=== PATIENT | female | born 1945 | race Two or more races ===

== ENCOUNTER 2022-11-10 07:24 | Inpatient (IN) | payer MEDICARE, MEDICAID, SELFPAY ==
[2022-11-10] VITALS (39 sets, daily range): BP systolic 92–154; BP diastolic 59–84; PULSE 85–116; RESP 14–26; TEMP 36.4–37.8; O2SAT 84–97; BMI 28.3; BMI 24.1
--- NOTE | 2022-11-10 07:34 | ECG_ITS ---
The [facility] Test Date: 2022-11-10 Pat Name: ENRIQUETA UGALDE Department: Room: - Gender: Female [employer]: : 1945 Requested By: Order Number: [id number] Reading MD: RONA RICHARDSON Measurements Intervals [place] Rate: 109 P: 50 WV: 158 QRS: 40 QRSD: 84 T: 99 QT: 322 QTc: 386 Interpretive Statements 1120 Sinus tachycardia 1570 with occasional ventricular premature complexes 4068 Nonspecific [place] abnormality 8102 Low QRS voltage in chest leads 9140 abnormal rhythm ECG No previous ECG available for comparison Electronically Signed On 11-11-2022 5:35:31 EDT by RONA RICHARDSON
--- NOTE | 2022-11-10 07:35 | XR_ITS ---
The [address] [address] Patient Name: ENRIQUETA UGALDE MRN: [id number] date: 1945 Sex: F Assigned Patient Location: ED.MAIN Current Patient Location: ED.MAIN Accession/Order Number: [id number] Exam Date: 11/10/2022 08:19 Report Date: 11/10/2022 08:46 At the request of: VERNON COLORADO Procedure: XR chest 1V EXAMINATION: XR chest 1V HISTORY: altered MS COMPARISON: 03/06/2019 TECHNIQUE: AP portable FINDINGS: LUNGS: Low lung volumes. No focal parenchymal infiltrates. Calcified tracheal bronchial tree VASCULATURE: Moderately increased pulmonary vasculature PLEURA: No pneumothorax, effusion, or pleural thickening. CARDIAC: No cardiomegaly or cardiac silhouette abnormality. MEDIASTINUM: No visible mass or adenopathy. BONES: No fracture or visible bone lesion. OTHER: Negative. XR/XR chest 1V IMPRESSION: Pulmonary vascular congestion Electronically authenticated by: WINNIE GUAN Date: 11/10/2022 08:46
--- NOTE | 2022-11-10 07:35 | CT_ITS ---
[address] [address] Patient Name: ENRIQUETA UGALDE MRN: [id number] date: 1945 Sex: F Assigned Patient Location: ER Current Patient Location: ER Accession/Order Number: [id number] Exam Date: 11/10/2022 08:12 Report Date: 11/10/2022 08:48 At the request of: VERNON COLORADO Procedure: CT head/brain wo con EXAMINATION: CT head/brain wo con, 11/10/2022 8:12 AM EDT HISTORY: altered MS COMPARISON: 03/06/2019 TECHNIQUE: CT scan of the head was performed without IV contrast. CT dose reduction technique was used, including Automated Exposure Control. FINDINGS: BRAIN PARENCHYMA/CSF SPACES: Chronic appearing right MCA territory infarct with ex vacuo dilatation of the right lateral ventricle. There is no hemorrhage, mass effect or midline shift. Mild low attenuation in the white matter consistent with chronic microvascular ischemia. PARANASAL SINUSES: There is complete opacification of the right maxillary and frontal sinuses. Moderate right ethmoid sinus disease. Mild left ethmoid sinus disease. The mastoid air cells are pneumatized. SKULL BASE AND CALVARIUM: Normal. EXTRACRANIAL SOFT TISSUES: Normal. CT/CT head/brain wo con IMPRESSION: 1. No acute intracranial abnormality. 2. Chronic appearing right MCA territory infarct. 3. Extensive sinus disease as described. Electronically authenticated by: ISABELLA PHILLIPS Date: 11/10/2022 08:48
--- NOTE | 2022-11-10 07:38 | ED_ITS ---
HPI - Altered Mental Status General Chief Complaint: Altered Mental Status Stated Complaint: SHORTNESS OF BREATH Time Seen by Provider: 11/10/22 07:30 Source: caregiver Source comment: JALEN SAINZ [facility]/ [facility] Mode of arrival: ambulance Limitations: altered mental status History of Present Illness HPI narrative: 77-year-old female presents from [facility] for altered mental status. She has a histo ry of cerebral palsy and is unable to give us any history at all. The patient normally is verbally combative and wasn't today. They felt that her O2 sat was low at eighty-eight percent so they sent her in. She came in by squad and is unable to provide us any history. All the history is obtained from the report and the paramedics and her paperwork. Related Data Home Medications Medication Instructions Recorded Confirmed Ear Drops 11/10/22 acetaminophen 500 mg tablet 500 mg PO Q6H PRN fever or pain 11/10/22 11/10/22 (Acetaminophen Extra Strength) benzonatate 200 mg capsule See Rx Instructions PO .COMPLEX 11/10/22 11/10/22 PRN cough brimonidine 0.2 %-timolol 0.5 % 1 drp ophthalmic (eye) BID 11/10/22 11/10/22 eye drops (Combigan) carbamazepine 200 mg 200 mg PO Q12H 11/10/22 11/10/22 tablet,extended release,12 hr carbamazepine 400 mg 400 mg PO Q12H 11/10/22 11/10/22 tablet,extended release,12 hr celecoxib 100 mg capsule 100 mg PO Q24H 11/10/22 11/10/22 cholecalciferol (vitamin D3) 125 125 mcg PO .24h 11/10/22 11/10/22 mcg (5,000 unit) tablet ibandronate 150 mg tablet 150 mg PO .monthly 11/10/22 11/10/22 [id number] .ROUTE 11/10/22 levetiracetam 1,000 mg tablet 1,000 mg PO Q12H 11/10/22 11/10/22 levetiracetam 500 mg tablet 500 mg PO Q12H 11/10/22 11/10/22 levothyroxine 50 mcg tablet 50 mcg PO DAILY 11/10/22 11/10/22 meclizine 12.5 mg tablet 12.5 mg PO TID PRN dizziness 11/10/22 11/10/22 pantoprazole 20 mg tablet,delayed 20 mg PO .24h 11/10/22 11/10/22 release phenyleph-shark oil-cocoa butr ME 11/10/22 potassium chloride 10 mEq 10 meq PO DAILY 11/10/22 11/10/22 tablet,extended release prednisolone acetate 1 % eye 1 drp ophthalmic (eye) Q12H 11/10/22 11/10/22 drops,suspension risperidone 0.25 mg tablet 0.25 mg PO QAM 11/10/22 11/10/22 risperidone 1 mg tablet 1 mg PO .qhs 11/10/22 11/10/22 rosuvastatin 40 mg tablet 40 mg PO DAILY 11/10/22 11/10/22 sennosides 8.6 mg tablet (senna) 8.6 mg PO DAILY 11/10/22 11/10/22 sertraline 100 mg tablet 100 mg PO Q24H 11/10/22 11/10/22 sertraline 50 mg tablet 50 mg PO Q24H 11/10/22 11/10/22 topiramate 100 mg tablet 100 mg PO Q12H 11/10/22 11/10/22 topiramate 200 mg tablet 200 mg PO Q12H 11/10/22 11/10/22 venlafaxine 75 mg capsule,extended 75 mg PO DAILY 11/10/22 11/10/22 release 24 hr Allergies Allergy/AdvReac Type Severity Reaction Status Date / Time No Known Drug Allergies Allergy Verified 11/10/22 08:09 Review of Systems ROS Narrative A ten point review of systems is negative except as noted above. Exam Narrative Exam Narrative: Nurses note and vital signs reviewed and patient is not hypoxic. General: The patient is nonverbal and is in no respiratory distress. Skin: Warm, dry, pallor noted. There is no rash noted. Head: Normocephalic, atraumatic Eye: Normal conjunctiva, no drainage Ears, Nose, Mouth, and Throat: oral mucosa is slightly dry. She is mouth breathing. Cardiovascular: Regular Rate and Rhythm Respiratory: Patient is in no distress, no accessory muscle use, lungs are clear to auscultation, no wheezing, rales or rhonchi Back: non-tender GI: soft and nontender Musculoskeletal: there is a contracture of her left hand and wrist Neurological: nonverbal Psychiatric: cannot be assessed Constitutional Vital Signs, click to edit/add: Last Vital Signs Temp 97.5 F L 11/10/22 07:29 Pulse 106 H 11/10/22 10:00 Resp 26 H 11/10/22 10:00 BP 103/80 11/10/22 10:13 Pulse Ox 94 L 11/10/22 10:28 O2 Del Method Room Air 11/10/22 10:28 O2 Flow Rate 2 11/10/22 07:30 Course Vital Signs Vital signs: Vital Signs Temperature 97.5 F L 11/10/22 07:29 Pulse Rate 116 H 11/10/22 07:29 Respiratory Rate 19 11/10/22 07:29 Blood Pressure 154/84 H 11/10/22 07:29 Pulse Oximetry 93 L 11/10/22 07:29 Oxygen Delivery Method Room Air 11/10/22 07:29 Temperature 97.5 F L 11/10/22 07:29 Pulse Rate 106 H 11/10/22 10:00 Respiratory Rate 26 H 11/10/22 10:00 Blood Pressure 103/80 11/10/22 10:13 Pulse Oximetry 94 L 11/10/22 10:28 Oxygen Delivery Method Room Air 11/10/22 10:28 Oxygen Delivery Flow Rate 2 11/10/22 07:30 MDM - Altered Mental Status MDM Narrative Medical decision making narrative: The patient's extensive workup suggests the possibility of a right lower lobe infiltrate. The patient is hemodynamically stable but according to caregiver hasn't returned to her normal self. Blood cultures are obtained and then she was given IV antibiotics and she's being admitted. Findings are discussed with the caregiver. Differential Diagnosis Differential diagnosis: Likely altered mental status, hypoglycemia, hyponatremia and OTHER (pneumonia, urinary tract infection, medication side effect) Lab Data Attestation: I reviewed the patient's lab results. Labs: Lab Results 11/10/22 11/10/22 Range/Units 07:40 07:50 WBC 9.2 (4.0-11.0) 10^3/uL RBC 3.97 L (4.20-5.40) 10^6/uL Hgb 13.6 (12.0-16.0) g/dL Hct 41.8 (36.0-48.0) % MCV 105.3 H (81.0-99.0) fL MCH 34.3 H (26.7-34.0) pg MCHC 32.5 (29.9-35.2) g/dL RDW 12.1 (11.0-15.0) % Plt Count 187 (150-450) 10^3/uL MPV 9.7 (9.5-13.5) fL Seg Neuts % (Manual) 91.0 Lymphocytes % (Manual) 6.0 L (20.5-60.0) % Monocytes % (Manual) 3.0 (1.7-12.0) % Eosinophils % (Manual) 0.0 L (0.9-7.0) % Basophils % (Manual) 0.0 L (0.2-2.0) % Neutrophils # (Manual) 8.37 H (1.4-6.5) 10^3/uL Lymphocytes # (Manual) 0.55 L (1.20-3.80) 10^3/uL Monocytes # (Manual) 0.27 L (0.30-0.80) 10^3/uL Eosinophils # (Manual) 0.00 (0.00-0.70) 10^3/uL Basophils # (Manual) 0.00 (0.00-0.10) 10^3/uL Macrocytosis 1+ Sodium 141 (136-145) mmol/L Potassium 3.4 L (3.5-5.1) mmol/L Chloride 108 H (98-107) mmol/L Carbon Dioxide 22.9 (21.0-32.0) mmol/L Anion Gap 13.5 BUN 16.0 (7.0-18.0) mg/dL Creatinine 0.79 (0.55-1.02) mg/dL Est GFR ( Amer) >60 (>=60) Est GFR (Non-Af Amer) >60 (>=60) BUN/Creatinine Ratio 20.3 Glucose 148 H (74-106) mg/dL Calcium 8.6 (8.5-10.1) mg/dL Troponin I High Sens 5.2 (4.0-51.3) pg/mL NT-Pro-B Natriuret Pep 425.0 (<=1800.0) pg/mL Urine Color Yellow (YELLOW) Urine Clarity Clear (CLEAR) Urine pH 7.0 (5.0-9.0) Ur Specific [place] 1.010 (1.005-1.025) Urine Protein Negative (NEG/TRACE) mg/dL Urine Glucose (UA) Negative (NEGATIVE) mg/dL Urine Ketones Negative (NEGATIVE) mg/dL Urine Occult Blood Negative (NEGATIVE) Urine Nitrite Positive A (NEGATIVE) Urine Bilirubin Negative (NEGATIVE) Urine Urobilinogen 1.0 (0.2-1.0) EU/dL Ur Leukocyte Esterase Negative (NEGATIVE) Urine RBC None seen (0-2) #/HPF Urine WBC 0-2 A (NONE SEEN) #/HPF Ur Squamous Epith Cells Few A (NONE/RARE) #/LPF Ur Renal Epithelial Cell Few A (NONE SEEN) #/LPF Urine Bacteria Large A (NONE SEEN) #/HPF Urine Mucus None seen (NONE SEEN) Imaging Data chest x-ray, CAT scan of abdomen: Radiologist's impression: Procedure: XR chest 1V EXAMINATION: XR chest 1V HISTORY: altered MS COMPARISON: 03/06/2019 TECHNIQUE: AP portable FINDINGS: LUNGS: Low lung volumes. No focal parenchymal infiltrates. Calcified tracheal bronchial tree VASCULATURE: Moderately increased pulmonary vasculature PLEURA: No pneumothorax, effusion, or pleural thickening. CARDIAC: No cardiomegaly or cardiac silhouette abnormality. MEDIASTINUM: No visible mass or adenopathy. BONES: No fracture or visible bone lesion. OTHER: Negative. IMPRESSION: Pulmonary vascular congestion Electronically authenticated by: WINNIE GUAN Date: 11/10/2022 08:46 Procedure: CT abdomen pelvis w con EXAM: CT abdomen pelvis w con; [id number] REASON FOR EXAM: altered MS TECHNIQUE: Helical CT images of the abdomen and pelvis were obtained after the administration of IV contrast. Multiplanar reformats were generated at the scanner. Dose reduction technique used: Automated exposure control and/or adjustment of the mA and/or kV according to patient size and/or use of iterative reconstruction technique. COMPARISON: CT abdomen/pelvis 12/12/2016. FINDINGS: Visualized Chest: Mild right basilar consolidation. Abdomen: Liver: -Multiple well-circumscribed subcentimeter hypodensities in the liver are too small to further characterize with any imaging modality though likely represent benign lesions. Gallbladder: Layering calcified gallstones are present. No evidence of acute cholecystitis. Bile Ducts: No significant biliary ductal dilatation. Pancreas: No mass, ductal dilatation, or inflammatory changes. Spleen: No splenomegaly or focal lesion. Adrenals: No nodules. Kidneys: -No stones or hydronephrosis. -No mass. Vascular: No aortic aneurysm. Lymph Nodes: No adenopathy. Abdominal Wall: Small fat-containing left inguinal hernia and small fat-containing periumbilical hernia. Pelvis: No mass or adenopathy. Bowel/Peritoneal Cavity/Mesentery: -No bowel obstruction or significant ileus. -No acute inflammatory changes. -No free air or free fluid. Musculoskeletal: Moderate wedge compression fracture of L3, new compared with 2017. IMPRESSION: 1. Mild right basilar consolidation. The appearance is equivocal for atelectasis versus pneumonia or aspiration. 2. Age-indeterminate moderate wedge compression fracture of L3. 3. Cholelithiasis without evidence of acute cholecystitis. 4. No acute intra-abdominal abnormality demonstrated. Electronically authenticated by: VICK BROWN Date: 11/10/2022 10:51 ECG Data Attestation: I personally reviewed and interpreted this ECG as follows: ( EKG on my interpretation shows sinus rhythm with a rate of 109.) Discharge Plan Discharge Chief Complaint: Altered Mental Status Clinical Impression: Pneumonia Patient Disposition: Admitted As Inpatient Time of Disposition Decision: 11:25 Condition: Fair
[2022-11-10 08:30] LABS: Anion Gap 13.5; BUN Creatinine Ratio 20.3; Calcium 8.6 mg/dL (8.5-10.1); Carbon Dioxide 22.9 mmol/L (21.0-32.0); Chloride 108 mmol/L (98-107); Estimated GFR (African America >60 (>=60); Estimated GFR (Non-African Ame >60 (>=60); Glucose 148 mg/dL (74-106); Potassium 3.4 mmol/L (3.5-5.1); Sodium 141 mmol/L (136-145)
[2022-11-10 08:30] LABS: Bilirubin Urine NEGATIVE (NEGATIVE); Blood Urine NEGATIVE (NEGATIVE); Clarity Urine CLEAR (CLEAR); Color Urine YELLOW (YELLOW); Glucose Urine UA NEGATIVE (NEGATIVE); Ketones Urine NEGATIVE (NEGATIVE); Leukocyte Esterase Urine NEGATIVE (NEGATIVE); Nitrite Urine POSITIVE (NEGATIVE); Protein Urine NEGATIVE (NEG/TRACE)
[2022-11-10 08:48] LABS: Hematocrit 41.8 % (36.0-48.0); Hemoglobin 13.6 g/dL (12.0-16.0); Mean Corpuscular HGB Conc 32.5 g/dL (29.9-35.2); Mean Corpuscular Hemoglobin 34.3 pg (26.7-34.0); Mean Corpuscular Volume 105.3 fL (81.0-99.0); Mean Platelet Volume 9.7 fL (9.5-13.5); Platelet Count 187 10^3/uL (150-450); Red Blood Count 3.97 10^6/uL (4.20-5.40); Red Cell Distribution Width 12.1 % (11.0-15.0); White Blood Count 9.2 10^3/uL (4.0-11.0)
[2022-11-10 09:18] LABS: Troponin I High Sensitivity 5.2 pg/mL (4.0-51.3)
[2022-11-10 09:32] LABS: Bacteria Urine LARGE #/HPF (NONE SEEN); Mucus Urine NONE SEEN (NONE SEEN); RBC Urine NONE SEEN #/HPF (0-2); Renal Epithelial Cells Urine FEW #/LPF (NONE SEEN); Squamous Epithelial Cell Urine FEW #/LPF (NONE/RARE); WBC Urine 0-2 #/HPF (NONE SEEN)
[2022-11-10 09:36] LABS: Lymphocytes Absolute Manual 0.55 10^3/uL (1.20-3.80); Monocytes Absolute Manual 0.27 10^3/uL (0.30-0.80); Segmented Neut Absolute Manual 8.37 10^3/uL (1.4-6.5)
[2022-11-10 09:38] LABS: Macrocytosis 1+
--- NOTE | 2022-11-10 09:56 | CT_ITS ---
[address] [address] Patient Name: ENRIQUETA UGALDE MRN: [id number] date: 1945 Sex: F Assigned Patient Location: ER Current Patient Location: ER Accession/Order Number: [id number] Exam Date: 11/10/2022 10:08 Report Date: 11/10/2022 10:51 At the request of: VERNON COLORADO Procedure: CT abdomen pelvis w con EXAM: CT abdomen pelvis w con; [id number] REASON FOR EXAM: altered MS TECHNIQUE: Helical CT images of the abdomen and pelvis were obtained after the administration of IV contrast. Multiplanar reformats were generated at the scanner. Dose reduction technique used: Automated exposure control and/or adjustment of the mA and/or kV according to patient size and/or use of iterative reconstruction technique. COMPARISON: CT abdomen/pelvis 12/12/2016. FINDINGS: Visualized Chest: Mild right basilar consolidation. Abdomen: Liver: -Multiple well-circumscribed subcentimeter hypodensities in the liver are too small to further characterize with any imaging modality though likely represent benign lesions. Gallbladder: Layering calcified gallstones are present. No evidence of acute cholecystitis. Bile Ducts: No significant biliary ductal dilatation. Pancreas: No mass, ductal dilatation, or inflammatory changes. Spleen: No splenomegaly or focal lesion. Adrenals: No nodules. Kidneys: -No stones or hydronephrosis. -No mass. Vascular: No aortic aneurysm. Lymph Nodes: No adenopathy. Abdominal Wall: Small fat-containing left inguinal hernia and small fat-containing periumbilical hernia. Pelvis: No mass or adenopathy. Bowel/Peritoneal Cavity/Mesentery: -No bowel obstruction or significant ileus. -No acute inflammatory changes. -No free air or free fluid. Musculoskeletal: Moderate wedge compression fracture of L3, new compared with 2017. CT/CT abdomen pelvis w con IMPRESSION: 1. Mild right basilar consolidation. The appearance is equivocal for atelectasis versus pneumonia or aspiration. 2. Age-indeterminate moderate wedge compression fracture of L3. 3. Cholelithiasis without evidence of acute cholecystitis. 4. No acute intra-abdominal abnormality demonstrated. Electronically authenticated by: VICK BROWN Date: 11/10/2022 10:51
[2022-11-10] MEDS: CEFTRIAXONE 1,000 MG in 0.9 % SODIUM CHLORIDE 50 ML 100 MG IV (11:26)
[2022-11-10] MEDS: AZITHROMYCIN 500 MG in 0.9 % SODIUM CHLORIDE 250 ML 250 MG IV (11:58)
[2022-11-10 13:44] LABS: Lactate/Lactic Acid 1.9 mmol/L (0.4-2.0)
--- NOTE | 2022-11-10 15:19 | SWNOTE1 ---
SW spoke to nursing and pt is from [facility].
[2022-11-10] MEDS: LACTATED RINGER'S SOLUTION 1,000 ML 100 ML IV (15:50)
--- NOTE | 2022-11-10 16:07 | P.HP_ITS ---
H&P: HPI History of Present Illness Chief complaint: SHORTNESS OF BREATH, PNEUMONIA Narrative: Patient with altered mental status closely just more lethargic at the [place], presented to the emergency room found to have pneumonia. Admitted for work-up and treatment of same Review of Systems ROS Status of ROS 10 or more systems reviewed and unremarkable except as noted in history and below [facility] Medical History Meds Home Medications and Allergies Home Medications Medication Instructions Recorded Confirmed Type acetaminophen 500 mg tablet 500 mg PO Q6H PRN fever or pain 11/10/22 11/10/22 History (Acetaminophen Extra Strength) brimonidine 0.2 %-timolol 0.5 % 1 drp ophthalmic (eye) BID 11/10/22 11/10/22 History eye drops (Combigan) carbamazepine 200 mg 200 mg PO Q12H 11/10/22 11/10/22 History tablet,extended release,12 hr carbamazepine 400 mg 400 mg PO Q12H 11/10/22 11/10/22 History tablet,extended release,12 hr celecoxib 100 mg capsule 100 mg PO Q24H 11/10/22 11/10/22 History cholecalciferol (vitamin D3) 125 125 mcg PO .24h 11/10/22 11/10/22 History mcg (5,000 unit) tablet ibandronate 150 mg tablet 150 mg PO .monthly 11/10/22 11/10/22 History levetiracetam 1,000 mg tablet 1,000 mg PO Q12H 11/10/22 11/10/22 History levetiracetam 500 mg tablet 500 mg PO Q12H 11/10/22 11/10/22 History levothyroxine 50 mcg tablet 50 mcg PO DAILY 11/10/22 11/10/22 History pantoprazole 20 mg tablet,delayed 20 mg PO .24h 11/10/22 11/10/22 History release potassium chloride 10 mEq 10 meq PO DAILY 11/10/22 11/10/22 History tablet,extended release prednisolone acetate 1 % eye 1 drp ophthalmic (eye) Q12H 11/10/22 11/10/22 History drops,suspension risperidone 0.25 mg tablet 0.25 mg PO QAM 11/10/22 11/10/22 History risperidone 1 mg tablet 1 mg PO .qhs 11/10/22 11/10/22 History rosuvastatin 40 mg tablet 40 mg PO DAILY 11/10/22 11/10/22 History sennosides 8.6 mg tablet (senna) 8.6 mg PO DAILY 11/10/22 11/10/22 History sertraline 100 mg tablet 100 mg PO Q24H 11/10/22 11/10/22 History sertraline 50 mg tablet 50 mg PO Q24H 11/10/22 11/10/22 History topiramate 100 mg tablet 100 mg PO Q12H 11/10/22 11/10/22 History topiramate 200 mg tablet 200 mg PO Q12H 11/10/22 11/10/22 History venlafaxine 75 mg capsule,extended 75 mg PO DAILY 11/10/22 11/10/22 History release 24 hr Allergies Allergy/AdvReac Type Severity Reaction Status Date / Time No Known Drug Allergies Allergy Verified 11/10/22 08:09 Exam Constitutional Vital Signs, click to edit/add: Last Vital Signs Temp 98.8 F 11/10/22 12:42 Pulse 99 H 11/10/22 12:42 Resp 18 11/10/22 12:42 BP 139/83 11/10/22 12:42 Pulse Ox 93 L 11/10/22 13:45 O2 Del Method Nasal Cannula 11/10/22 13:45 O2 Flow Rate 1 11/10/22 13:45 Documenting provider has reviewed patient's vital signs: yes Common normals: apparent distress (Very lethargic but does answer some questions) Chest Common normals: inspection of chest normal and palpation of chest normal Respiratory Common normals: normal respiratory effort and no retractions Cardio Common normals: regular rate, regular rhythm and no murmurs Results Labs Labs: Short CBC 11/10/22 Range/Units 07:50 WBC 9.2 (4.0-11.0) 10^3/uL Hgb 13.6 (12.0-16.0) g/dL Hct 41.8 (36.0-48.0) % Plt Count 187 (150-450) 10^3/uL BMP 11/10/22 07:50 Sodium 141 Potassium 3.4 L Chloride 108 H Carbon Dioxide 22.9 BUN 16.0 Creatinine 0.79 Glucose 148 H Calcium 8.6 Urine 11/10/22 Range/Units 07:40 Urine Color Yellow (YELLOW) Urine Clarity Clear (CLEAR) Urine pH 7.0 (5.0-9.0) Ur Specific [place] 1.010 (1.005-1.025) Urine Protein Negative (NEG/TRACE) mg/dL Urine Glucose (UA) Negative (NEGATIVE) mg/dL Assessment and Plan Assessment and Plan (1) Pneumonia: (2) Cerebral palsy: (3) Major depressive disorder: Plan Altered mental status with hypoxia noted at [facility], saturations around 85% on room air. Room with the emergency room. Found to have significant pneumonia. Admitted for work-up and treatment of same. Cerebral palsy so behavior may be somewhat of an issue. Monitor closely Seizure disorder-continue with current medications Hypothyroidism-continue with home medications, may need levels checked GERD-continue Protonix
[2022-11-10] MEDS: IPRATROPIUM/ALBUTEROL SULFATE 3 ML AMPUL.NEB IH ×2 (16:16→22:18)
[2022-11-10] MEDS: TOPIRAMATE 100 MG TABLET 300 MG PO (18:52)
[2022-11-10] MEDS: risperiDONE 1 MG TABLET PO (18:52)
[2022-11-10] MEDS: LEVETIRACETAM 500 MG TABLET 1500 MG PO (18:53)
[2022-11-10] MEDS: CARBAMAZEPINE 400 MG 400 EACH PO (18:54)
[2022-11-10] MEDS: ACETAMINOPHEN 500 MG TABLET 1000 MG PO (19:58)
[2022-11-10] MEDS: POTASSIUM CHLORIDE 10 MEQ ER TABLET PO (21:44)
[2022-11-10] MEDS: PREDNISOLONE ACETATE OP 1% SUSP 100 DROPS/5 ML 1 DROP EYE-RIGHT (21:44)
[2022-11-10] MEDS: TIMOLOL MALEATE 0.5% OP SOL 100 DROPS/5 ML BOTTLE 1 DROP EYE-RIGHT (21:48)
[2022-11-10] MEDS: CARBAMAZEPINE 200 MG 200 EACH PO (21:51)
[2022-11-11] VITALS (7 sets, daily range): BP systolic 90–139; BP diastolic 45–77; PULSE 74–90; RESP 14–18; TEMP 36.4–36.8; O2SAT 90–98
[2022-11-11] MEDS: LACTATED RINGER'S SOLUTION 1,000 ML 100 ML IV ×3 (01:29→21:18)
--- NOTE | 2022-11-11 09:37 | P.PN_ITS ---
Progress Note: Subjective Subjective Interval history: Patient much more alert this morning. More talkative this morning. A little cranky. Exam Constitutional Vital Signs, click to edit/add: Last Vital Signs Temp 98.3 F 11/11/22 05:00 Pulse 90 11/11/22 05:00 Resp 18 11/11/22 08:00 BP 90/45 L 11/11/22 05:00 Pulse Ox 92 L 11/11/22 05:00 O2 Del Method Nasal Cannula 11/11/22 05:00 O2 Flow Rate 1 11/11/22 05:00 Documenting provider has reviewed patient's vital signs: yes Common normals: apparent distress (Very lethargic but does answer some questions) Chest Common normals: inspection of chest normal and palpation of chest normal Respiratory Common normals: normal respiratory effort and no retractions Cardio Common normals: regular rate, regular rhythm and no murmurs Progress Note: A&P Assessment and Plan (1) Pneumonia: (2) Cerebral palsy: (3) Major depressive disorder: Plan Fever, sinus tachycardia, respiratory distress, altered mental status with hypoxia noted at snf, saturations around 85% on room air, 84% here-due to pneumonia. Admitted for work-up and treatment of same.- Acute UTI-culture pending Hypokalemia-supplement Cerebral palsy so behavior may be somewhat of an issue. Monitor closely-no a djustment medications currently Seizure disorder-continue with current medications Hypothyroidism-continue with home medications, may need levels checked GERD-continue Protonix ?
--- NOTE | 2022-11-11 09:38 | CM.NOTE ---
Rounds made with Dr. Ash, pt continues to require oxygen. No discharge today. Pt comes from [facility].
[2022-11-11] MEDS: VENLAFAXINE HCL ER 75 MG CAPSULE PO (10:58)
[2022-11-11] MEDS: LEVETIRACETAM 500 MG TABLET 1500 MG PO ×2 (10:58→19:33)
[2022-11-11] MEDS: CARBAMAZEPINE 400 MG 400 EACH PO ×2 (10:59→19:34)
[2022-11-11] MEDS: SENNOSIDES 8.6 MG TABLET PO (10:59)
[2022-11-11] MEDS: CARBAMAZEPINE 200 MG 200 EACH PO ×2 (10:59→19:34)
[2022-11-11] MEDS: PREDNISOLONE ACETATE OP 1% SUSP 100 DROPS/5 ML 1 DROP EYE-RIGHT ×2 (11:00→21:10)
[2022-11-11] MEDS: OMEPRAZOLE 20 MG CAPSULE.DR PO (11:00)
[2022-11-11] MEDS: TOPIRAMATE 100 MG TABLET 300 MG PO ×2 (11:00→19:34)
[2022-11-11] MEDS: CHOLECALCIFEROL (VITAMIN D3) 125 MCG/5000 UNIT TABLET PO (11:00)
[2022-11-11] MEDS: TIMOLOL MALEATE 0.5% OP SOL 100 DROPS/5 ML BOTTLE 1 DROP EYE-RIGHT ×2 (11:01→21:09)
[2022-11-11] MEDS: CEFTRIAXONE 1,000 MG in 0.9 % SODIUM CHLORIDE 50 ML 100 MG IV (11:20)
--- NOTE | 2022-11-11 11:28 | PT.DAILY ---
Physical Therapy Daily Note PT Daily Note/Assess Start: 11/11/22 11:24 Freq: Status: Active Protocol: Document 11/11/22 11:24 PAULAOTTOCEDRIC (Rec: 11/11/22 11:28 PAULAISRRAEL [id number]) Physical Therapy Daily Note/Assessment Time In/Time Out Time In 10:58 Time Out 11:09 Pain In Pain N/A Pain Out Pain N/A Subjective Subjective Pt supine upon arrival. Agrees to attempt PT this morning. Pt responds better to yes/no questions or 1 word responses. Therapeutic Activity Time Therapeutic Activity Minutes (minutes) 10 Therapeutic Activity Units 1 Therapeutic Activity Treatment Bed Mobility Ability Maximum Assist Therapeutic Activity Comments Pt is assisted from supine>sit with MaxA to advance her LEs and Upper body to sit EOB. Initially needing ModA to maintain static sitting balance but then is able to sit unsupported for 4 min. Pt gets lightheaded and wishes to lay back down. Pt is assisted from sitting>supine with MaxA +2 with assist from nursing at this time. Pt remains supine with pillow propped under L side and L arm for comfort, HOB is elevated, and call light is within reach. Total Physical Therapy Time Total Therapy Minutes 10 Total Physical Therapy Units 1 Summary Daily Note Summary Improved tolerance with sitting EOB - less assistance needed to maintain balance and increased duration of sitting .
[2022-11-11] MEDS: AZITHROMYCIN 250 MG in 0.9 % SODIUM CHLORIDE 250 ML IV (12:16)
[2022-11-11 15:21] LABS: Basophils Percent Auto 0.2 % (0.2-2.0); Hematocrit 34.5 % (36.0-48.0); Hemoglobin 11.1 g/dL (12.0-16.0); Immature Granulocytes Abs Auto 0.02 10^3/uL (0.00-0.03); Immature Granulocytes Pct Auto 0.3 % (0.0-0.5); Lymphocytes Percent Auto 16.2 % (20.5-60.0); Mean Corpuscular HGB Conc 32.2 g/dL (29.9-35.2); Mean Corpuscular Hemoglobin 34.8 pg (26.7-34.0); Mean Platelet Volume 9.5 fL (9.5-13.5); Monocytes Absolute Auto 0.9 10^3/uL (0.3-0.8); Monocytes Percent Auto 13.8 % (1.7-12.0); Neutrophils Absolute Auto 4.4 10^3/uL (1.4-6.5); Neutrophils Percent Auto 69.5 % (43.0-75.0); Platelet Count 137 10^3/uL (150-450); Red Blood Count 3.19 10^6/uL (4.20-5.40); Red Cell Distribution Width 12.5 % (11.0-15.0); White Blood Count 6.3 10^3/uL (4.0-11.0)
[2022-11-11 15:50] LABS: Anion Gap 14.2; BUN Creatinine Ratio 12.2; Calcium 7.7 mg/dL (8.5-10.1); Chloride 112 mmol/L (98-107); Estimated GFR (African America >60 (>=60); Estimated GFR (Non-African Ame >60 (>=60); Glucose 98 mg/dL (74-106); Potassium 3.2 mmol/L (3.5-5.1); Sodium 147 mmol/L (136-145)
[2022-11-11 15:51] LABS: Mean Corpuscular Volume 108.2 fL (81.0-99.0)
--- NOTE | 2022-11-11 15:56 | SWNOTE1 ---
NATALIA called [facility] to see if pt had family in the area or that was close to pt and they voiced the son and daughter live far away and that she has a court appointed guardian. NATALIA spoke with nursing to see if pt is alert and oriented, nursing felt she was oriented to self but recommended calling guardian to review form. SW called and left guardian message. NATALIA received phone call back from guardian. NATALIA reviewed IMM form with guardian, Alisha, no questions at this time and permission given to sign. NATALIA signed form and placed original in room and copy on chart.
[2022-11-11] MEDS: SERTRALINE HCL 50 MG TABLET 150 MG PO (19:33)
[2022-11-11] MEDS: risperiDONE 1 MG TABLET PO (19:33)
[2022-11-11] MEDS: POTASSIUM CHLORIDE 10 MEQ ER TABLET 20 MEQ PO (21:09)
[2022-11-11] MEDS: NON-FORMULARY 1 EACH (Rosuvastatin 40 mg tablet) 40 EACH PO (22:29)
--- NOTE | 2022-11-11 23:03 | RESP.RT ---
Pt refused breathing tx. Pt stated they make her cough and she does not want them.
[2022-11-12 04:51] VITALS: O2SAT 91
--- NOTE | 2022-11-12 04:51 | RESP.RT ---
Addendum entered by Lisette Wright 11/12/22 04:57: No respiratory distress noted. Original Note: Pt refused breathing tx and PEP.
[2022-11-12] MEDS: LEVOTHYROXINE SODIUM 25 MCG TABLET 50 MCG PO (05:37)
--- NOTE | 2022-11-12 05:41 | PC.NURSE ---
This RN offered patient several times throughout the shift sips of water. Patient got angry and stated I don't like water . This RN offered juice or milk as alternate. Patient refused.
[2022-11-12 05:46] LABS: Hematocrit 33.5 % (36.0-48.0); Hemoglobin 10.4 g/dL (12.0-16.0); Mean Corpuscular Hemoglobin 34.2 pg (26.7-34.0); Mean Corpuscular Volume 110.2 fL (81.0-99.0); Mean Platelet Volume 9.8 fL (9.5-13.5); Platelet Count 140 10^3/uL (150-450); Red Blood Count 3.04 10^6/uL (4.20-5.40); Red Cell Distribution Width 12.4 % (11.0-15.0)
[2022-11-12 05:51] VITALS: BP 126/78; PULSE 81; RESP 18; TEMP 36.9; O2SAT 91
[2022-11-12 06:34] LABS: Anion Gap 14.1; BUN Creatinine Ratio 16.3; Calcium 7.9 mg/dL (8.5-10.1); Carbon Dioxide 22.4 mmol/L (21.0-32.0); Chloride 109 mmol/L (98-107); Estimated GFR (African America >60 (>=60); Estimated GFR (Non-African Ame >60 (>=60); Glucose 100 mg/dL (74-106); Potassium 3.5 mmol/L (3.5-5.1); Sodium 142 mmol/L (136-145)
[2022-11-12 06:45] LABS: Lymphocytes Absolute Manual 1.14 10^3/uL (1.20-3.80); Monocytes Absolute Manual 0.84 10^3/uL (0.30-0.80); Segmented Neut Absolute Manual 3.96 10^3/uL (1.4-6.5)
[2022-11-12 06:46] LABS: Macrocytosis 2+
[2022-11-12] MEDS: LACTATED RINGER'S SOLUTION 1,000 ML 100 ML IV (07:11)
--- NOTE | 2022-11-12 08:34 | CM.NOTE ---
Rounds made with Dr. Ash, possible discharge back to [facility] this afternoon if pt remains off oxygen and no fever.
[2022-11-12] MEDS: CARBAMAZEPINE 400 MG 400 EACH PO (08:48)
[2022-11-12] MEDS: CARBAMAZEPINE 200 MG 200 EACH PO (08:48)
[2022-11-12] MEDS: OMEPRAZOLE 20 MG CAPSULE.DR PO (08:49)
[2022-11-12] MEDS: CHOLECALCIFEROL (VITAMIN D3) 125 MCG/5000 UNIT TABLET PO (08:49)
[2022-11-12] MEDS: LEVETIRACETAM 500 MG TABLET 1500 MG PO (08:49)
[2022-11-12] MEDS: VENLAFAXINE HCL ER 75 MG CAPSULE PO (08:50)
[2022-11-12] MEDS: POTASSIUM CHLORIDE 10 MEQ ER TABLET 20 MEQ PO (08:50)
[2022-11-12] MEDS: SENNOSIDES 8.6 MG TABLET PO (08:50)
[2022-11-12] MEDS: TIMOLOL MALEATE 0.5% OP SOL 100 DROPS/5 ML BOTTLE 1 DROP EYE-RIGHT (08:51)
[2022-11-12] MEDS: PREDNISOLONE ACETATE OP 1% SUSP 100 DROPS/5 ML 1 DROP EYE-RIGHT (08:51)
--- NOTE | 2022-11-12 09:00 | P.DS_ITS ---
DS: Providers Provider Date of admission: 11/10/22 11:52 Primary care physician: Non-Staff Physician, Consults: 11/10/22 12:42 Occupational Therapy Eval and Treat Routine Reason for consultation: if nneeddd for rehab Has provider been notified: No Physical Therapy Eval and Treat Routine Reason for consultation: evalk and treat Has provider been notified: No DS: Diagnosis Discharge Diagnosis (1) Pneumonia: (2) Cerebral palsy: (3) Major depressive disorder: Plan Fever, sinus tachycardia, respiratory distress, altered mental status with hypoxia noted at [facility], saturations around 85% on room air, 84% here-due to pneumonia. Acute UTI-culture pending Hypokalemia-supplement Cerebral palsy so behavior may be somewhat of an issue. Monitor closely-no adjustment medications currently Seizure disorder-continue with current medications Hypothyroidism-continue with home medications, may need levels checked GERD-continue Protonix DS: Summary Hospital Course Hospital Course: Patient was admitted with acute hypoxia, tachycardia, respiratory distress found to have pneumonia. Given IV antibiotics, aerosol treatments. Her hypoxia resolved. In the last 24 hours prior to discharge has been stable. At this point she is stable for discharge back to her facility we will continue with oral antibiotics at her facility. Medications see list. Follow-up with PCP at facility Time Spent with Patient Time attestation: Total time spent providing and/or coordinating discharge services: Exam Constitutional Vital Signs, click to edit/add: Last Vital Signs Temp 98.5 F 11/12/22 05:51 Pulse 81 11/12/22 05:51 Resp 18 11/12/22 05:51 BP 126/78 11/12/22 05:51 Pulse Ox 91 L 11/12/22 05:51 O2 Del Method Room Air 11/12/22 05:51 O2 Flow Rate 1 11/11/22 10:34 Documenting provider has reviewed patient's vital signs: yes Common normals: apparent distress (Very lethargic but does answer some questions) Chest Common normals: inspection of chest normal and palpation of chest normal Respiratory Common normals: normal respiratory effort and no retractions Cardio Common normals: regular rate, regular rhythm and no murmurs DS: Data Data Completed and Pending Labs on day of discharge: Labs from last 24 hours 11/12/22 11/11/22 05:22 15:16 WBC 6.0 6.3 RBC 3.04 L 3.19 L Hgb 10.4 L 11.1 L Hct 33.5 L 34.5 L MCV 110.2 H 108.2 H MCH 34.2 H 34.8 H MCHC 31.0 32.2 RDW 12.4 12.5 Plt Count 140 L 137 L MPV 9.8 9.5 Neut % (Auto) 69.5 Lymph % (Auto) 16.2 L Randall % (Auto) 13.8 H Eos % (Auto) 0.0 L Baso % (Auto) 0.2 Neut # (Auto) 4.4 Lymph # (Auto) 1.0 L Randall # (Auto) 0.9 H Eos # (Auto) 0.0 Baso # (Auto) 0.0 Abs Immat Gran (auto) 0.02 Seg Neuts % (Manual) 66.0 Lymphocytes % (Manual) 19.0 L Monocytes % (Manual) 14.0 H Eosinophils % (Manual) 0.0 L Basophils % (Manual) 0.0 L Imm/Tot Granulo (auto) 0.3 Neutrophils # (Manual) 3.96 Lymphocytes # (Manual) 1.14 L Monocytes # (Manual) 0.84 H Eosinophils # (Manual) 0.00 Basophils # (Manual) 0.00 Macrocytosis 2+ Sodium 142 147 H Potassium 3.5 3.2 L Chloride 109 H 112 H Carbon Dioxide 22.4 24.0 Anion Gap 14.1 14.2 BUN 8.0 9.0 Creatinine 0.49 L 0.74 Est GFR ( Amer) >60 >60 Est GFR (Non-Af Amer) >60 >60 BUN/Creatinine Ratio 16.3 12.2 Glucose 100 98 Calcium 7.9 L 7.7 L Discharge Plan Discharge Disposition: Xfer LTC Condition: Fair Discharge Medications: New cefdinir 300 mg capsule 600 mg PO DAILY 10 Days Qty: 20 0RF Continued acetaminophen [Acetaminophen Extra Strength] 500 mg tablet 500 mg PO Q6H PRN (Reason: fever or pain) carbamazepine 400 mg tablet extended release 12 hr 400 mg PO Q12H carbamazepine 200 mg tablet extended release 12 hr 200 mg PO Q12H celecoxib 100 mg capsule 100 mg PO Q24H brimonidine-timolol [Combigan] 0.2-0.5 % drops 1 drp ophthalmic (eye) BID Rx Instructions: 1 drop right eye BID sennosides [senna] 8.6 mg tablet 8.6 mg PO DAILY venlafaxine 75 mg capsule,extended release 24hr 75 mg PO DAILY levetiracetam 500 mg tablet 500 mg PO Q12H sertraline 100 mg tablet 100 mg PO Q24H risperidone 0.25 mg tablet 0.25 mg PO QAM potassium chloride 10 mEq tablet extended release 10 meq PO DAILY pantoprazole 20 mg tablet,delayed release (DR/EC) 20 mg PO .24h prednisolone acetate 1 % drops,suspension 1 drp ophthalmic (eye) Q12H Patient Comments: right eye levothyroxine 50 mcg tablet 50 mcg PO DAILY topiramate 200 mg tablet 200 mg PO Q12H topiramate 100 mg tablet 100 mg PO Q12H sertraline 50 mg tablet 50 mg PO Q24H risperidone 1 mg tablet 1 mg PO .qhs rosuvastatin 40 mg tablet 40 mg PO DAILY ibandronate 150 mg tablet 150 mg PO .monthly Rx Instructions: TAKE ON THE OF EACH MONTH levetiracetam 1,000 mg tablet 1,000 mg PO Q12H cholecalciferol (vitamin D3) 125 mcg (5,000 unit) tablet 125 mcg PO .24h [employer] Instructions: Discharge back to [facility] in [place]. Forms: Portal Instructions Discharge Date/Time: 11/12/22 13:27
[2022-11-12] MEDS: risperiDONE 0.5 MG TABLET PO (10:57)
[2022-11-12] MEDS: TOPIRAMATE 100 MG TABLET 300 MG PO (10:57)
[2022-11-12] MEDS: CEFTRIAXONE 1,000 MG in 0.9 % SODIUM CHLORIDE 50 ML 100 MG IV (12:24)
== END 2022-11-12 13:27 | DRG 194 ==
LOC: ER 11:26 → MS 11-12 06:44
PROVIDERS: Admitting Provider Family Medicine; Emergency Provider Emergency Medicine; Visit Provider Family Medicine
DX: J18.9 Pneumonia, unspecified organism (principal); N39.0 Urinary tract infection, site not specified; G80.9 Cerebral palsy, unspecified; F32.9 Major depressive disorder, single episode, unspecified; R09.02 Hypoxemia; R41.82 Altered mental status, unspecified; R06.03 Acute respiratory distress; R50.9 Fever, unspecified; R00.0 Tachycardia, unspecified; E87.6 Hypokalemia; G40.909 Epilepsy, unspecified, not intractable, without status epilepticus; E03.9 Hypothyroidism, unspecified; K21.9 Gastro-esophageal reflux disease without esophagitis; Z79.899 Other long term (current) drug therapy; Z79.890 Hormone replacement therapy; B96.20 Unspecified Escherichia coli [E. coli] as the cause of diseases classified elsewhere
CPT/HCPCS: 36415; 70450; 71045; 74177; 80048; 81001; 83605; 83880; 84484; 85025; 85027; 87040; 87070; 87086; 87150; 87186; 93005; 94640; 94667; 94761; 96365; 96366; 96367; 97161; 97165; 97530; 99285; J0456; Q9967

== ENCOUNTER 2022-12-19 17:30 | Emergency (ER) | payer MEDICARE, MEDICAID, SELFPAY ==
[2022-12-19 17:36] VITALS: BP 139/75; PULSE 67; RESP 20; O2SAT 97
[2022-12-19 17:40] VITALS: TEMP 37.2
--- NOTE | 2022-12-19 18:10 | XR_ITS ---
The [address] [address] Patient Name: ENRIQUETA UGALDE MRN: [id number] date: 1945 Sex: F Assigned Patient Location: ER Current Patient Location: ER Accession/Order Number: [id number] Exam Date: 12/19/2022 18:35 Report Date: 12/19/2022 19:01 At the request of: JOSE RYAN Procedure: XR foot RT min 3V EXAM: XR ankle RT min 3V, XR foot RT min 3V HISTORY: Ankle pain COMPARISON: None. TECHNIQUE: 3 views of the ankle and 3 views of the foot FINDINGS: Patient is status post open reduction internal fixation of the fibula and distal tibia. The internal hardware exhibits no gross abnormality. The osseous structures exhibit no acute fracture, dislocation, subluxation or osseous lesion. No visualized joint effusion. The talocrural articulation is relatively maintained. Remainder of the joint spaces are unremarkable. Chronic changes of the tips of the medial lateral malleolus. XR/XR foot RT min 3V IMPRESSION: No visualized acute abnormality Electronically authenticated by: WINNIE WORKMAN Date: 12/19/2022 19:01
--- NOTE | 2022-12-19 18:10 | XR_ITS ---
The [address] [address] Patient Name: ENRIQUETA UGALDE MRN: [id number] date: 1945 Sex: F Assigned Patient Location: ER Current Patient Location: ER Accession/Order Number: [id number] Exam Date: 12/19/2022 18:35 Report Date: 12/19/2022 19:01 At the request of: JOSE RYAN Procedure: XR ankle RT min 3V EXAM: XR ankle RT min 3V, XR foot RT min 3V HISTORY: Ankle pain COMPARISON: None. TECHNIQUE: 3 views of the ankle and 3 views of the foot FINDINGS: Patient is status post open reduction internal fixation of the fibula and distal tibia. The internal hardware exhibits no gross abnormality. The osseous structures exhibit no acute fracture, dislocation, subluxation or osseous lesion. No visualized joint effusion. The talocrural articulation is relatively maintained. Remainder of the joint spaces are unremarkable. Chronic changes of the tips of the medial lateral malleolus. XR/XR ankle RT min 3V IMPRESSION: No visualized acute abnormality Electronically authenticated by: WINNIE WORKMAN Date: 12/19/2022 19:01
--- NOTE | 2022-12-19 18:10 | ED.LOWEXI1 ---
HPI - Extremity Injury (Lower) General Chief Complaint: Extremity Injury, Lower Stated Complaint: R ANKLE INJURY Time Seen by Provider: 12/19/22 17:47 Source: caregiver Mode of arrival: Wheelchair Limitations: no limitations History of Present Illness HPI Narrative: The patient is coming to us from a retirement after she has been having right ankle pain that details of the injury was not reported that there was nobody around her when this started, suspicion that she injured her right ankle almost within the last few hours Complaining of the right foot and ankle pain Related Data Home Medications Medication Instructions Recorded Confirmed acetaminophen 500 mg tablet 500 mg PO Q6H PRN fever or pain 11/10/22 11/10/22 (Acetaminophen Extra Strength) brimonidine 0.2 %-timolol 0.5 % 1 drp ophthalmic (eye) BID 11/10/22 11/10/22 eye drops (Combigan) carbamazepine 200 mg 200 mg PO Q12H 11/10/22 11/10/22 tablet,extended release,12 hr carbamazepine 400 mg 400 mg PO Q12H 11/10/22 11/10/22 tablet,extended release,12 hr celecoxib 100 mg capsule 100 mg PO Q24H 11/10/22 11/10/22 cholecalciferol (vitamin D3) 125 125 mcg PO .24h 11/10/22 11/10/22 mcg (5,000 unit) tablet ibandronate 150 mg tablet 150 mg PO .monthly 11/10/22 11/10/22 levetiracetam 1,000 mg tablet 1,000 mg PO Q12H 11/10/22 11/10/22 levetiracetam 500 mg tablet 500 mg PO Q12H 11/10/22 11/10/22 levothyroxine 50 mcg tablet 50 mcg PO DAILY 11/10/22 11/10/22 pantoprazole 20 mg tablet,delayed 20 mg PO .24h 11/10/22 11/10/22 release potassium chloride 10 mEq 10 meq PO DAILY 11/10/22 11/10/22 tablet,extended release prednisolone acetate 1 % eye 1 drp ophthalmic (eye) Q12H 11/10/22 11/10/22 drops,suspension risperidone 0.25 mg tablet 0.25 mg PO QAM 11/10/22 11/10/22 risperidone 1 mg tablet 1 mg PO .qhs 11/10/22 11/10/22 rosuvastatin 40 mg tablet 40 mg PO DAILY 11/10/22 11/10/22 sennosides 8.6 mg tablet (senna) 8.6 mg PO DAILY 11/10/22 11/10/22 sertraline 100 mg tablet 100 mg PO Q24H 11/10/22 11/10/22 sertraline 50 mg tablet 50 mg PO Q24H 11/10/22 11/10/22 topiramate 100 mg tablet 100 mg PO Q12H 11/10/22 11/10/22 topiramate 200 mg tablet 200 mg PO Q12H 11/10/22 11/10/22 venlafaxine 75 mg capsule,extended 75 mg PO DAILY 11/10/22 11/10/22 release 24 hr Previous Rx's Medication Instructions Recorded cefdinir 300 mg capsule 600 mg PO DAILY 10 days #20 caps 11/12/22 Allergies Allergy/AdvReac Type Severity Reaction Status Date / Time No Known Drug Allergies Allergy Verified 11/10/22 08:09 Review of Systems ROS Status of ROS 10 or more systems reviewed and unremarkable except as noted in history and below [facility] Medical History Exam Narrative Exam Narrative: Nurses notes and vital signs reviewed and patient is not hypoxic. General: Well-appearing and in no apparent distress. Skin: Warm, dry, no pallor noted. No rash. Head: Normocephalic, atraumatic. Neck: Supple, non-tender. Eye: Pupils are equal, round and EOMI. No scleral icterus. Ears, Nose, Mouth, and Throat: TM are clear, no nasal mucosal hypertrophy. Oral mucosa is moist, no posterior oropharynx erythema, uvula is mid-line Cardiovascular: Regular Rate and Rhythm without murmur, gallop or rub. Respiratory: No accessory muscle use or respiratory distress. Lungs are clear to auscultation, no wheezing, rales or rhonchi Chest Wall: no tenderness Back: No midline thoracic or lumbar vertebral tenderness. No CVA tenderness Musculoskeletal: normal ROM, no calf or popliteal tenderness, there is the tenderness upon palpation of the right ankle mostly the swelling is around the right lateral malleolus the patient also have complained of tenderness at the foot but there is no tenderness on examination, no vascular injury as well GI: Abdomen is soft, non-distended. Normal bowel sounds. No masses appreciated. No tenderness to palpation. No rebound, guarding, or rigidity noted. Neurological: A&O x4. No cranial nerve dysfunction observed. No truncal ataxia. Moves all extremities. Sensation intact. Psychiatric: Cooperative and interactive. Normal mood and affect. Constitutional Vital Signs, click to edit/add: Last Vital Signs Temp 99.0 F 12/19/22 17:40 Pulse 67 12/19/22 17:36 Resp 20 12/19/22 17:36 BP 139/75 12/19/22 17:36 Pulse Ox 97 12/19/22 17:36 O2 Del Method Room Air 12/19/22 17:36 Course Vital Signs Vital signs: Vital Signs Pulse Rate 67 12/19/22 17:36 Respiratory Rate 20 12/19/22 17:36 Blood Pressure 139/75 12/19/22 17:36 Pulse Oximetry 97 12/19/22 17:36 Oxygen Delivery Method Room Air 12/19/22 17:36 Temperature 99.0 F 12/19/22 17:40 Pulse Rate 67 12/19/22 17:36 Respiratory Rate 20 12/19/22 17:36 Blood Pressure 139/75 12/19/22 17:36 Pulse Oximetry 97 12/19/22 17:36 Oxygen Delivery Method Room Air 12/19/22 17:36 MDM - Extremity Injury (Lower) MDM Narrative Medical decision making narrative: X-ray was ordered for the ankle as well as the right foot and the patient care will be transferred to Dr. Huff awaiting the results of the x-ray Discharge Plan Discharge Patient Disposition: Still a Patient
[2022-12-19] MEDS: ACETAMINOPHEN 325 MG TABLET 650 MG PO (20:43)
[2022-12-19 20:46] VITALS: BP 91/73; PULSE 68; RESP 20; O2SAT 96
== END 2022-12-19 20:49 | disposition home or self-care (01) ==
PROVIDERS: Emergency Provider Internal Medicine
DX: S93.401A Sprain of unspecified ligament of right ankle, initial encounter (principal); X58.XXXA Exposure to other specified factors, initial encounter; Z79.899 Other long term (current) drug therapy; Z79.890 Hormone replacement therapy
CPT/HCPCS: 73610; 73630; 99283